=== PATIENT | female | born 1975 | race Caucasian/White ===

== ENCOUNTER 2018-03-29 11:20 | Observation (INO) | payer BC ==
[~2018-03-29] VITALS: Ht 170.2 cm; Wt 56.4 kg
[~2018-03-29 11:20] MED LIST: Z.0.NO CURRENT MEDS
[2018-03-29 11:23] VITALS: BP 118/67; PULSE 87; RESP 16; TEMP 97.5; O2SAT 100
[2018-03-29] MEDS ORDERED: SODIUM CHLOR 0.9% 1000 ML INJ 1,000 ML IV SCH (11:36)
[2018-03-29] MEDS ORDERED: ONDANSETRON ODT 4 MG TAB PO ONE (11:45)
[2018-03-29] MEDS ORDERED: MORPHINE SULFATE 4 MG/ML INJ IV PUSH ONE (11:45)
[2018-03-29] MEDS ORDERED: SODIUM CHLORIDE 0.9% FLUSH 10 ML FLUSH IV FLUSH PRN (11:45)
--- NOTE | 2018-03-29 11:46 | PD ---
HPI Chief Complaint: Abdominal Pain Time Seen by Provider: 11:29 Travel History International Travel<30 days: No Contact w/Intl Traveler<30days: No Traveled to known affect area: No History of Present Illness HPI The patient was seen and examined in the presence of the nurse. This patient complains of abdominal pain. Location is periumbilical. Duration is 4.5 hours. She has nausea and vomiting as well. No fever. No alleviating factors. No exacerbating factors. No history of abdominal surgeries. Patient has ADD on Adderall. She has had some light vaginal bleeding for 2-3 weeks which started after recently stopping her control pills. Pain is rated as severe. PFSH Past Medical History Hx Anticoagulant Therapy: No ADD: Yes Diminished Hearing: No Insomnia: Yes Tetanus Vaccination: > 5 Years Influenza Vaccination: No ?: Unknown LMP: Int. spotting X's 2 weeks Past Surgical History Surgical History: No Previous Surgery Social History Alcohol Use: No Tobacco Use: No Substance Use: No Allergies-Medications (Allergen,Severity, Reaction): Coded Allergies: No Known Allergies (Verified Allergy, Unknown, 03/29/18) Reported Meds & Prescriptions Reported Meds & Active Scripts Active Review of Systems General / Constitutional: No: Fever Eyes: No: Visual changes HENT: No: Headaches Cardiovascular: No: Chest Pain or Discomfort Respiratory: No: Shortness of Breath Gastrointestinal: Positive: Nausea, Vomiting, Abdominal Pain Genitourinary: Positive: Vaginal Bleeding, No: Dysuria Musculoskeletal: No: Pain Skin: No Rash Neurologic: No: Weakness Psychiatric: No: Depression Endocrine: No: Polydipsia Hematologic/Lymphatic: No: Easy Bruising Physical Exam Narrative GENERAL: Well-nourished, well-developed patient in abdominal pain . SKIN: Focused skin assessment reveals no rash and nodules. Skin is Warm and dry. HEAD: Atraumatic. Normocephalic. EYES: Pupils equal and round. No scleral icterus. No injection or drainage. ENT: No nasal bleeding or discharge. Mucous membranes pink and moist. NECK: Trachea midline. No JVD. CARDIOVASCULAR: Regular rate and rhythm. No murmur appreciated. RESPIRATORY: No accessory muscle use. Clear to auscultation. Breath sounds equal bilaterally. GASTROINTESTINAL: Abdomen soft, periumbilical tenderness is present without rebound or guarding , nondistended. Hepatic and splenic margins not palpable. MUSCULOSKELETAL: No obvious deformities. No clubbing. No cyanosis. No edema. NEUROLOGICAL: Awake and alert. No obvious cranial nerve deficits. Motor grossly within normal limits. Normal speech. PSYCHIATRIC: Appropriate mood and affect; insight and judgment normal. \Pelvic: Scant dried blood in the vault. No discharge. No cervical motion tenderness. No adnexal mass or tenderness. No uterine tenderness. Data Data Last Documented VS Vital Signs Date Time Temp Pulse Resp B/P (MAP) Pulse Ox O2 Delivery O2 Flow Rate FiO2 03/29/18 13:00 69 18 120/72 (88) 100 Room Air 03/29/18 11:23 97.5 Orders Orders Complete Blood Count With Diff (03/29/18 11:36) Comprehensive Metabolic Panel (03/29/18 11:36) Lipase (03/29/18 11:36) Prothrombin Time / Inr (Pt) (03/29/18 11:36) Act Partial Throm Time (Ptt) (03/29/18 11:36) Urinalysis - C+S If Indicated (03/29/18 11:36) Ct Abd/Pel W Iv Contrast(Rout) (03/29/18 11:36) Iv Access Insert/Monitor (03/29/18 11:36) NPO (03/29/18 11:36) Sodium Chlor 0.9% 1000 Ml Inj (Ns 1000 M (03/29/18 11:36) Sodium Chloride 0.9% Flush (Ns Flush) (03/29/18 11:45) Ondansetron Odt (Zofran Odt) (03/29/18 11:45) Morphine Inj (Morphine Inj) (03/29/18 11:45) Beta Hcg (Quant/Titer) (03/29/18 11:36) Prochlorperazine Inj (Compazine Inj) (03/29/18 13:15) Iohexol 350 Inj (Omnipaque 350 Inj) (03/29/18 13:35) Admit Order (Ed Use Only) (03/29/18 14:00) Labs Laboratory Tests Test 03/29/18 12:38 03/29/18 13:59 White Blood Count 20.5 TH/MM3 Red Blood Count 4.64 MIL/MM3 Hemoglobin 13.4 GM/DL Hematocrit 40.0 % Mean Corpuscular Volume 86.2 FL Mean Corpuscular Hemoglobin 28.8 PG Mean Corpuscular Hemoglobin Concent 33.5 % Red Cell Distribution Width 13.3 % Platelet Count 188 TH/MM3 Mean Platelet Volume 9.0 FL Neutrophils (%) (Auto) 92.7 % Lymphocytes (%) (Auto) 5.1 % Monocytes (%) (Auto) 1.5 % Eosinophils (%) (Auto) 0.1 % Basophils (%) (Auto) 0.6 % Neutrophils # (Auto) 19.1 TH/MM3 Lymphocytes # (Auto) 1.0 TH/MM3 Monocytes # (Auto) 0.3 TH/MM3 Eosinophils # (Auto) 0.0 TH/MM3 Basophils # (Auto) 0.1 TH/MM3 CBC Comment AUTO DIFF Differential Comment AUTO DIFF CONFIRMED Platelet Estimate NORMAL Platelet Morphology Comment NORMAL Red Cell Morphology Comment NORMAL Prothrombin Time 10.7 SEC Prothromb Time International Ratio 1.1 RATIO Activated Partial Thromboplast Time 28.6 SEC Blood Urea Nitrogen 10 MG/DL Creatinine 0.56 MG/DL Random Glucose 125 MG/DL Total Protein 6.7 GM/DL Albumin 3.6 GM/DL Calcium Level 8.4 MG/DL Alkaline Phosphatase 62 U/L Aspartate Amino Transf (AST/SGOT) 14 U/L Alanine Aminotransferase (ALT/SGPT) 20 U/L Total Bilirubin 0.4 MG/DL Sodium Level 137 MEQ/L Potassium Level 3.6 MEQ/L Chloride Level 104 MEQ/L Carbon Dioxide Level 24.7 MEQ/L Anion Gap 8 MEQ/L Estimat Glomerular Filtration Rate 120 ML/MIN Lipase 80 U/L Human Chorionic Gonadotropin, Quant LESS THAN 1 MIU/ML MDM Medical Decision Making Medical Screen Exam Complete: Yes Emergency Medical Condition: Yes Medical Record Reviewed: Yes Differential Diagnosis Appendicitis, ectopic, colitis Narrative Course I have reviewed the patient's electronic medical record. 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 This would go along with her periumbilical abdominal pain rather than right lower quadrant Case reviewed with Dr. Garcia who will admit for acute appendicitis. I gave a dose of Unasyn She is n.p.o. Diagnosis Primary Impression: Acute appendicitis Qualified Codes: K35.80 - Unspecified acute appendicitis Admitting Information Admitting Physician Requests: Admit Titi Colorado MD Mar 29, 2018 11:46
[2018-03-29 12:48] LABS: AUTOMATED NEUTROPHIL # 19.1 TH/MM3 (1.8-7.7); BASOPHIL # 0.1 TH/MM3 (0-0.2); BASOPHIL % 0.6 % (0.0-2.0); EOSINOPHIL % 0.1 % (0.0-4.0); HEMOGLOBIN 13.4 GM/DL (11.6-15.3); LYMPH % 5.1 % (9.0-44.0); MEAN CELL VOLUME 86.2 FL (80.0-100.0); MEAN CORPUSCULAR HEMOGLOBIN 28.8 PG (27.0-34.0); MEAN CORPUSCULAR HGB CONC 33.5 % (32.0-36.0); MONO % 1.5 % (0.0-8.0); MONOCYTE # 0.3 TH/MM3 (0-0.9); NEUT % 92.7 % (16.0-70.0); PLATELET COUNT 188 TH/MM3 (150-450); RED BLOOD COUNT 4.64 MIL/MM3 (4.00-5.30); RED CELL DISTRIBUTION WIDTH 13.3 % (11.6-17.2); WHITE BLOOD COUNT 20.5 TH/MM3 (4.0-11.0)
[2018-03-29 13:00] VITALS: BP 120/72; PULSE 69; RESP 18; O2SAT 100
[2018-03-29 13:01] LABS: CHLORIDE 104 MEQ/L (98-107); SODIUM (NA) 137 MEQ/L (136-145)
[2018-03-29 13:05] LABS: ALBUMIN 3.6 GM/DL (3.4-5.0); BICARBONATE 24.7 MEQ/L (21.0-32.0); CALCIUM 8.4 MG/DL (8.5-10.1); GLUCOSE,RANDOM 125 MG/DL (74-106)
[2018-03-29 13:06] LABS: BLOOD UREA NITROGEN 10 MG/DL (7-18); INTERNATIONAL NORMALIZED RATIO 1.1 RATIO; PROTHROMBIN TIME - PATIENT 10.7 SEC (9.8-11.6)
[2018-03-29 13:08] LABS: ALT (GPT) 20 U/L (10-53); AST (GOT) 14 U/L (15-37); CREATININE 0.56 MG/DL (0.50-1.00); GLOMERULAR FILTRATION RATE 120 ML/MIN (>89)
[2018-03-29 13:10] LABS: TOTAL BILIRUBIN ADULT 0.4 MG/DL (0.2-1.0); TOTAL PROTEIN 6.7 GM/DL (6.4-8.2)
[2018-03-29 13:11] LABS: ALKALINE PHOSPHATASE 62 U/L (45-117)
[2018-03-29] MEDS ORDERED: PROCHLORPERAZINE INJ 10 MG/2 ML VIAL IV PUSH ONE (13:15)
[2018-03-29] MEDS ORDERED: IOHEXOL 350 MG/ML 10 ML VIAL (for RAD DIAG) IVCONTRAST ONE (13:35)
--- NOTE | 2018-03-29 13:47 | RADRPT ---
EXAM DATE: 03/29/2018 1:34 PM EDT AGE/SEX: 42 years / Female INDICATIONS: Mid abdominal pain with nausea and vomiting. CLINICAL DATA: This is the patient's initial encounter. Patient reports that signs and symptoms have been present for 1 day and indicates a pain score of 4/10. MEDICAL/SURGICAL HISTORY: None. None. ORAL CONTRAST: No oral contrast ingested. RADIATION DOSE: 5.63 CTDI (mGy) COMPARISON: No prior [facility] exams available for comparison. TECHNIQUE: Multiple contiguous axial images were obtained through the abdomen and pelvis following b olus infusion of 90 ml Omnipaque 350 (iohexol) nonionic water-soluble contrast as a single exam dos e. No oral contrast ingested. Using automated exposure control and adjustment of the mA and/or kV ac cording to patient size, the radiation dose was kept as low as reasonably achievable to obtain optima l diagnostic quality images. FINDINGS: Lower Lungs: The visualized lower lungs are clear. Liver: Punctate, subcentimeter hypodensity the junction of the left and right hepatic lobe probably r epresenting a small cyst. There is no dilation of the biliary tree. Spleen: Homogeneous density without enlargement. Pancreas: Unremarkable without mass or calcification. Kidneys: Normal in size and shape. No evidence of mass or hydronephrosis. Adrenal Glands: Unremarkable. Aorta: The aorta and proximal iliac vessels are grossly unremarkable without aneurysmal dilation. Bowel/Mesentery: The bowel loops are grossly unremarkable. The cecum and sigmoid colon have a normal configuration. The appendix is rather long with an increased diameter measuring upwards of 9.5 mm. T here are also scattered areas of either inspissated stool, small appendicoliths or previous contrast in the appendiceal lumen Abdominal Wall: Intact. Retroperitoneum: No evidence of adenopathy in the retrocrural, para-aortic, or deep pelvic regions. Bladder: Contours are smooth. Reproductive Organs: Retroflexed uterus. 2.2 cm cyst in the right ovary. Inguinal: The inguinal region is unremarkable without evidence of adenopathy. Bony Structures: Unremarkable. CONCLUSION: 1. Appendix is abnormally thickened measuring 9.5 mm in diameter with scattered areas of increased d ensity possibly representing small appendicoliths or inspissated stool. Findings are characteristic o f a mild, early appendicitis. 2. 2.2 cm right ovarian cyst Electronically signed by: Herb Weinstein MD 03/29/2018 1:46 PM EDT
[2018-03-29 14:07] LABS: BILIRUBIN, URINE NEG (NEG); BLOOD, URINE TRACE (NEG); GLUCOSE,URINE NEG (NEG); KETONE, URINE 40 mg/dL (NEG); NITRITE,URINE NEG (NEG); PH, URINE 6.5 (5.0-8.5); URINE COLOR YELLOW (YELLW/STRAW); URINE LEUKOCYTE ESTERASE NEG (NEG)
[2018-03-29 14:15] LABS: RBC, URINE 0-3 /hpf (0-3); SQUAMOUS EPITHELIAL CELL URINE 0-5 /hpf (0-5); WBC, URINE 0-2 /hpf (0-5)
[2018-03-29] MEDS ORDERED: PROCHLORPERAZINE INJ 10 MG/2 ML VIAL IV PUSH PRN (14:15)
[2018-03-29] MEDS ORDERED: MORPHINE SULFATE 4 MG/ML INJ IV PUSH PRN ×2 (14:15→18:30)
[2018-03-29] MEDS ORDERED: AMPICILLIN-SULBACTAM INJ 1,500 MG in SODIUM CHLORIDE 0.9% INJ 100 ML IV ONE (14:15)
[2018-03-29] MEDS: SODIUM CHLOR 0.9% 1000 ML INJ 1,000 ML IV SCH ×3 (14:20→20:12)
[2018-03-29 14:25] VITALS: BP 122/76; PULSE 92; RESP 16; O2SAT 97
[2018-03-29] MEDS ORDERED: BUPIVACAINE/EPINEPHRINE 0.75% PF 30 ML VIAL ONE (14:29)
[2018-03-29] MEDS ORDERED: APREPITANT 40 MG CAP ONE (16:35)
[2018-03-29] MEDS ORDERED: LACTATED RINGER'S 1000 ML IV PRN (17:00)
[2018-03-29] MEDS ORDERED: METOPROLOL TARTRATE 25 MG TAB PO PRN (17:00)
[2018-03-29] MEDS ORDERED: POVIDONE IODINE 5% (ANTISEPSIS KIT) 4 APPLICATIONS EACH NARE PRN (17:00)
[2018-03-29] MEDS ORDERED: SODIUM CHLORID 0.9% 500 ML IV PRN (17:00)
[2018-03-29] MEDS ORDERED: CHLORHEXIDINE GLUCONATE 2 % 1 PACK (2 CLOTHS) TOPICAL PRN (17:00)
--- NOTE | 2018-03-29 18:25 | HHI.PR ---
cc: El Garcia MD Immediate Post Op Note Procedure Date: Mar 29, 2018 Pre Op Diagnosis: Acute appendicitis Post Op Diagnosis: Same, without perforation Surgeon: El Garcia Loft Patternmaker(s): Levi Savage CFA Procedure: Laparoscopic appendectomy Complications: None Specimen(s) removed: Appendix to pathology Estimated blood loss: <10 ml Anesthesia: General Drains: None IVF (900 ml) Patient to: PACU Patient Condition: Good Date/Time of Procedure: SEE SURGICAL CARE RECORD El Garcia MD Mar 29, 2018 18:25
[2018-03-29] MEDS ORDERED: HYDR-3288 PO (18:29)
[2018-03-29] MEDS ORDERED: MORPHINE SULFATE 8 MG/ML INJ IV PUSH PRN (18:30)
[2018-03-29] MEDS ORDERED: NALOXONE HCL 0.4 MG/ML AMP IV PUSH PRN (18:30)
[2018-03-29] MEDS ORDERED: ACETAMINOPHEN/HYDROcodone 325 MG/5 MG TAB PO PRN (18:30)
[2018-03-29] MEDS ORDERED: diphenhydrAMINE HCL 50 MG/ML VIAL IVP PRN (18:30)
[2018-03-29] MEDS ORDERED: Post-op Orders (for Pharmacy) XX ONE (18:30)
[2018-03-29 18:33] VITALS: PULSE 115
--- NOTE | 2018-03-29 19:30 | MH ---
cc: El Garcia MD DATE OF ADMISSION: 03/29/2018 REASON FOR ADMISSION: Acute appendicitis. HISTORY OF PRESENT ILLNESS: The patient is a 42-year-old female who began to develop abdominal pain across the lower abdomen this morning. It began in the periumbilical region and has now migrated to both lower abdomen. The patient had nausea and emesis as well. No change in bowel habits. She has no history of abdominal surgeries. She takes Adderall for attention deficit disorder. Last menstrual period, she has had intermittent spotting for the last 2 weeks. She has had no previous surgeries. She does not drink. She does not smoke. She does not use other medications or substances. ALLERGIES: SHE HAS NO KNOWN ALLERGIES. REVIEW OF SYSTEMS: Negative except for GI, which is positive as indicated above. PHYSICAL EXAMINATION: GENERAL: Exam reveals a female, in no acute distress. VITAL SIGNS: BP 139/90, pulse 115, respirations 16, temperature 97.6, 100% saturation on room air. HEENT: Sclerae anicteric. CHEST: Clear to auscultation. CARDIOVASCULAR: Reveals tachycardia, without murmurs. ABDOMEN: Soft, with tenderness in both lower quadrants, with some guarding in the right lower quadrant. There are no hernias noted. Pulses are intact. NEUROLOGIC: Nonfocal. LABORATORY DATA: Demonstrate WBCs of 20.5, hemoglobin is 13.4, platelets 188,000. Chemistries demonstrate BUN and creatinine of 10 and 0.56. Potassium is 3.6. IMAGING: Demonstrates dilated appendix to 1 cm, with areas of increased density representing appendicolith or inspissated stool. This is consistent with a mild early appendicitis and a 2.2 cm right ovarian cyst is noted as well. ASSESSMENT: Early acute appendicitis, with right lower quadrant pain and guarding. PLAN: I have discussed with the patient and her significant other laparoscopic appendectomy versus antibiotic treatment. Given her significant pain with an 8/10, I have recommended that she consider appendectomy and she is agreeable. I have discussed risks of surgery including, but not limited to, bleeding, infection, leakage and adhesion formation, need for possible open procedure and drainage. I have discussed remedies, consequences, alternatives and convalescence; she vocalizes understanding and agrees to proceed. MD JOY Nelson/LACI , 06:37 PM , 07:29 PM
--- NOTE | 2018-03-29 20:00 | MP ---
cc: El Garcia MD DATE OF OPERATION: 03/29/2018 PROCEDURE PERFORMED: Laparoscopic appendectomy. PREOPERATIVE DIAGNOSIS: Acute appendicitis. POSTOPERATIVE DIAGNOSIS: Acute appendicitis without perforation. ANESTHESIA: General endotracheal. SURGEON: El Garcia MD ESTIMATED BLOOD LOSS: Less than 10 mL FLUIDS: 900 mL crystalloid. COMPLICATIONS: None. DRAINS: None. SPECIMENS: Appendix to pathology. PROCEDURE IN DETAIL: The patient was taken to the operating room and placed on the operating table in the supine position. After an adequate level of general endotracheal anesthesia was achieved, the abdomen was prepped and draped in the usual fashion. Timeout was taken confirming the correct patient, site and procedure to be performed. Skin and subcutaneous tissue was infiltrated with local anesthetic, an incision made in the umbilicus and carried through the fascia sharply. The peritoneal cavity was directly visualized. A 12 mm balloon trocar was inserted and the balloon inflated. The abdomen was insufflated. The patient was placed in Trendelenburg position. A 5 mm 30 degree laparoscope was inserted. Two 5 mm trocars were then placed with the first in the right lower quadrant and the second in the suprapubic region, midway between the pubis and the umbilical port. Both entered the abdominal cavity under direct vision uneventfully. The appendix was then rotated up and was seen to be dilated and slightly inflamed. The mesoappendix was divided with the Harmonic scalpel. Dissection was carried back to the base of the appendix. A 0 PDS Endoloop was slipped over the appendix and cinched down at the base. While dividing the appendix 1 cm distal to this, a small piece of stool extruded. This was taken with the appendix and placed into an EndoCatch device, while observing via the right lower quadrant trocar site with the camera. This was taken out via the umbilical port site and passed off the table. The abdomen was then irrigated and all irrigation aspirated from the abdominal cavity. The appendectomy stump was seen to be clean and dry. There was no bleeding noted from the mesoappendix. The cul-de-sac was examined and seen to be clean and dry as well. There were no suspicious lesions or other findings of significance. Insufflation was then discontinued and the 5 mm trocars were removed under direct vision. No bleeding was noted from the trocar sites. The laparoscope and umbilical port were then removed. The fascia was closed in the umbilicus with 0 Vicryl suture in both a simple interrupted and [id number] fashion. The remaining local anesthetic was injected into each of the trocar sites. The skin was closed at each of the trocar sites with 4-0 Vicryl in an interrupted buried fashion. All trocar sites were dressed with Steri-Strips. The patient was extubated and taken back to the recovery room in stable condition. She tolerated the procedure well. MD JOY Nelson/LACI , 06:40 PM , 08:00 PM
[2018-03-29] MEDS: KETOROLAC TROMETHAMINE 30 MG/ML (IVP) VIAL IVP PRN (20:13)
[2018-03-30] VITALS: BP 135/91; PULSE 104; RESP 20; TEMP 98.4; O2SAT 98
[2018-03-30] MEDS: ONDANSETRON HCL 4 MG/2 ML VIAL IV PUSH PRN ×2 (00:50→08:56)
[2018-03-30] MEDS: ACETAMINOPHEN/HYDROcodone 325 MG/5 MG TAB PO PRN ×4 (00:50→15:34)
[2018-03-30] MEDS: SODIUM CHLOR 0.9% 1000 ML INJ 1,000 ML IV SCH ×2 (02:42→03:24)
[2018-03-30] MEDS: KETOROLAC TROMETHAMINE 30 MG/ML (IVP) VIAL IVP PRN ×3 (03:33→13:26)
[2018-03-30 08:00] VITALS: BP 135/82; PULSE 94; RESP 19; TEMP 97.1; O2SAT 99
[2018-03-30 08:15] LABS: AUTOMATED NEUTROPHIL # 16.5 TH/MM3 (1.8-7.7); BASOPHIL # 0.3 TH/MM3 (0-0.2); BASOPHIL % 1.5 % (0.0-2.0); EOSINOPHIL # 0.2 TH/MM3 (0-0.4); EOSINOPHIL % 0.9 % (0.0-4.0); HEMATOCRIT 37.9 % (35.0-46.0); HEMOGLOBIN 12.6 GM/DL (11.6-15.3); LYMPH % 7.3 % (9.0-44.0); LYMPHOCYTE # 1.4 TH/MM3 (1.0-4.8); MEAN CELL VOLUME 85.5 FL (80.0-100.0); MEAN CORPUSCULAR HEMOGLOBIN 28.5 PG (27.0-34.0); MEAN CORPUSCULAR HGB CONC 33.3 % (32.0-36.0); MEAN PLATELET VOLUME 8.9 FL (7.0-11.0); MONOCYTE # 0.6 TH/MM3 (0-0.9); NEUT % 87.3 % (16.0-70.0); PLATELET COUNT 190 TH/MM3 (150-450); RED BLOOD COUNT 4.43 MIL/MM3 (4.00-5.30)
[2018-03-30] MEDS ORDERED: ZOFR4TAB PO (08:31)
[2018-03-30] MEDS ORDERED: POTASSIUM CHLOR 20 MEQ PREMIX 100 ML IV ONE (10:45)
--- NOTE | 2018-03-30 11:48 | HHI.PR ---
Subjective Subjective Notes Resting in bed Painful but "different type pain today" Objective Vitals/I&O Vital Signs Date Time Temp Pulse Resp B/P (MAP) Pulse Ox O2 Delivery O2 Flow Rate FiO2 03/30/18 09:58 18 03/30/18 08:00 97.1 94 135/82 (99) 99 03/29/18 19:00 Room Air Labs Laboratory Tests Test 03/29/18 12:38 03/29/18 13:59 03/30/18 08:05 White Blood Count 20.5 19.0 Red Blood Count 4.64 4.43 Hemoglobin 13.4 12.6 Hematocrit 40.0 37.9 Mean Corpuscular Volume 86.2 85.5 Mean Corpuscular Hemoglobin 28.8 28.5 Mean Corpuscular Hemoglobin Concent 33.5 33.3 Red Cell Distribution Width 13.3 13.0 Platelet Count 188 190 Mean Platelet Volume 9.0 8.9 Neutrophils (%) (Auto) 92.7 87.3 Lymphocytes (%) (Auto) 5.1 7.3 Monocytes (%) (Auto) 1.5 3.0 Eosinophils (%) (Auto) 0.1 0.9 Basophils (%) (Auto) 0.6 1.5 Neutrophils # (Auto) 19.1 16.5 Lymphocytes # (Auto) 1.0 1.4 Monocytes # (Auto) 0.3 0.6 Eosinophils # (Auto) 0.0 0.2 Basophils # (Auto) 0.1 0.3 CBC Comment AUTO DIFF DIFF FINAL Differential Comment AUTO DIFF CONFIRMED Platelet Estimate NORMAL Platelet Morphology Comment NORMAL Red Cell Morphology Comment NORMAL Prothrombin Time 10.7 Prothromb Time International Ratio 1.1 Activated Partial Thromboplast Time 28.6 Blood Urea Nitrogen 10 Creatinine 0.56 Random Glucose 125 Total Protein 6.7 Albumin 3.6 Calcium Level 8.4 Alkaline Phosphatase 62 Aspartate Amino Transf (AST/SGOT) 14 Alanine Aminotransferase (ALT/SGPT) 20 Total Bilirubin 0.4 Sodium Level 137 Potassium Level 3.6 Chloride Level 104 Carbon Dioxide Level 24.7 Anion Gap 8 Estimat Glomerular Filtration Rate 120 Lipase 80 Human Chorionic Gonadotropin, Quant LESS THAN 1 Urine Collection Type Urine Color YELLOW Urine Turbidity CLEAR Urine pH 6.5 Urine Specific [place] LESS/EQUAL 1.005 Urine Protein NEG Urine Glucose (UA) NEG Urine Ketones 40 Urine Occult Blood TRACE Urine Nitrite NEG Urine Bilirubin NEG Urine Urobilinogen 0.2 Urine Leukocyte Esterase NEG Urine RBC 0-3 Urine WBC 0-2 Urine Squamous Epithelial Cells 0-5 Urine Bacteria NONE Microscopic Urinalysis Comment CULT NOT INDICATED Cardiovascular: Regular Lungs: Clear Abdomen: Other (lap sites without any redness; umbilical site with mildly blood drainage; RLQ tenderness ), Post-op tenderness Extremities: No edema A/P Assessment and Plan 42 year old female POD1 non perforated appendicitis -Regular diet -WBC remain elevated; continue Unasyn and recheck CBC at 1400 -Pain control -Depending on WBC ---DC today vs tomorrow -Dr. Garcia to see this evening -Discussed with RN Pool and at bedside Attending Note - Dr. Garcia Abdominal pain improved WBC's repeated, down to 15.9k Ok for cischarge F/U my office one week The exam, history, and the medical decision-making described in the above note were completed with the assistance of the mid-level provider. I reviewed and agree with the findings presented. I attest that I had a [id number] encounter with the patient on the same day, and personally performed and documented my assessment and findings in the medical record. Michelle GomesP/Librarian Assistant SMALLTALK DEVELOPER Mar 30, 2018 11:48 El Garcia MD Mar 30, 2018 19:33
[2018-03-30 12:00] VITALS: BP 140/74; PULSE 87; RESP 20; TEMP 97.1; O2SAT 100
[2018-03-30] MEDS ORDERED: AMPICILLIN-SULBACTAM INJ 1,500 MG in SODIUM CHLORIDE 0.9% INJ 100 ML IV SCH ×2 (12:00→18:00)
[2018-03-30 13:32] LABS: AUTOMATED NEUTROPHIL # 13.8 TH/MM3 (1.8-7.7); BASOPHIL # 0.1 TH/MM3 (0-0.2); BASOPHIL % 0.5 % (0.0-2.0); EOSINOPHIL % 0.2 % (0.0-4.0); HEMATOCRIT 35.9 % (35.0-46.0); HEMOGLOBIN 12.4 GM/DL (11.6-15.3); LYMPH % 6.1 % (9.0-44.0); LYMPHOCYTE # 0.9 TH/MM3 (1.0-4.8); MEAN CELL VOLUME 85.3 FL (80.0-100.0); MEAN CORPUSCULAR HEMOGLOBIN 29.4 PG (27.0-34.0); MEAN CORPUSCULAR HGB CONC 34.4 % (32.0-36.0); MEAN PLATELET VOLUME 9.5 FL (7.0-11.0); MONOCYTE # 0.1 TH/MM3 (0-0.9); NEUT % 92.2 % (16.0-70.0); PLATELET COUNT 219 TH/MM3 (150-450); RED BLOOD COUNT 4.21 MIL/MM3 (4.00-5.30); RED CELL DISTRIBUTION WIDTH 13.5 % (11.6-17.2); WHITE BLOOD COUNT 14.9 TH/MM3 (4.0-11.0)
[2018-03-30 16:34] VITALS: RESP 18
== END 2018-03-30 16:56 | disposition home or self-care (01) ==
LOC: PHED 11:20 → INTOOBSV 14:01 → PHEDA 14:01 → PH3A 14:40
PROVIDERS: ADMIT Surgery Trauma Surgery; ATTEND Surgery Trauma Surgery
DX: K35.80 Unspecified acute appendicitis (principal); G47.00 Insomnia, unspecified; F98.8 Other specified behavioral and emotional disorders with onset usually occurring in childhood and adolescence; N83.201 Unspecified ovarian cyst, right side
CPT/HCPCS: 00840; 44970; 74177; 80053; 81001; 83690; 84702; 85025; 85610; 85730; 88304; 94150; 96361; 96365; 96375; 96376; 99285; G0378; J0295; J0780; J1885; J2270; J2405; J3010; J7030; J7120; Q9967; J8501

== ENCOUNTER 2018-04-08 08:07 | Emergency (ER) | payer BC ==
[~2018-04-08] VITALS: Ht 152.4 cm; Wt 56.0 kg
[~2018-04-08 08:07] MED LIST changes: +HYDR-3288 PO; -Z.0.NO CURRENT MEDS; +ZOFR4TAB PO
[2018-04-08 08:09] VITALS: BP 120/81; PULSE 102; RESP 16; TEMP 97.6; O2SAT 99
--- NOTE | 2018-04-08 08:40 | PD ---
HPI Chief Complaint: Skin Problem Time Seen by Provider: 08:37 Travel History International Travel<30 days: No Contact w/Intl Traveler<30days: No Traveled to known affect area: No History of Present Illness HPI This 42-year-old female is complaining of drainage from an umbilical wound. She was admitted to the hospital on March 29 with acute appendicitis. He had an appendectomy done with Dr. Garcia. She has done well since the surgery. She did have some irritation at the umbilical port since his surgery. She saw Dr. Garcia in follow-up on Thursday and was well. This morning when she got up she noted there was purulent drainage from the umbilical site. She has been eating. She has not had a fever. PFSH Past Medical History Hx Anticoagulant Therapy: No ADD: Yes Diabetes: No Diminished Hearing: No Insomnia: Yes Tetanus Vaccination: Unknown Influenza Vaccination: No ?: Not LMP: 3 WEEKS Past Surgical History Appendectomy: Yes (03/29/18) Social History Alcohol Use: No Tobacco Use: No Substance Use: No Allergies-Medications (Allergen,Severity, Reaction): Coded Allergies: No Known Allergies (Verified Allergy, Unknown, 04/08/18) Reported Meds & Prescriptions Reported Meds & Active Scripts Active Zofran (Ondansetron HCl) 4 Mg Tab 4 Mg PO Q6HR PRN [place] (Hydrocodone-Acetaminophen) 7.5-325 mg Tab 1-2 Tab PO Q4H PRN Review of Systems Except as stated in HPI: all other systems reviewed are Neg General / Constitutional: No: Fever, Chills Eyes: No: Diploplia HENT: No: Headaches Cardiovascular: No: Chest Pain or Discomfort Respiratory: No: Cough, Shortness of Breath Gastrointestinal: No: Nausea, Vomiting Genitourinary: No: Urgency Skin: No Rash Endocrine: No: Heat Intolerance, Cold Intolerance Hematologic/Lymphatic: No: Easy Bruising Physical Exam Narrative GENERAL: Well-developed female SKIN: Focused skin assessment warm/dry. HEAD: Atraumatic. Normocephalic. EYES: Pupils equal and round. No scleral icterus. No injection or drainage. ENT: No nasal bleeding or discharge. Mucous membranes pink and moist. NECK: Trachea midline. No JVD. CARDIOVASCULAR: Regular rate and rhythm. No murmur appreciated. RESPIRATORY: No accessory muscle use. Clear to auscultation. Breath sounds equal bilaterally. GASTROINTESTINAL: Abdomen soft, non-tender, nondistended. Hepatic and splenic margins not palpable. There are Steri-Strips over the incision from the appendectomy. There is purulent drainage coming from under the Steri-Strip overlying the umbilicus. I have removed that Steri-Stripped to promote drainage. A culture has been obtained. No masses palpable MUSCULOSKELETAL: No obvious deformities. No clubbing. No cyanosis. No edema. NEUROLOGICAL: Awake and alert. No obvious cranial nerve deficits. Motor grossly within normal limits. Normal speech. PSYCHIATRIC: Appropriate mood and affect; insight and judgment normal. Data Data Last Documented VS Vital Signs Date Time Temp Pulse Resp B/P (MAP) Pulse Ox O2 Delivery O2 Flow Rate FiO2 04/08/18 10:48 105 16 127/85 (99) 100 Room Air 04/08/18 08:09 97.6 Orders Orders Wound Culture And Gram Stain (04/08/18 08:37) Complete Blood Count With Diff (04/08/18 08:47) Basic Metabolic Panel (Bmp) (04/08/18 08:47) Ct Abd/Pel W Iv Contrast(Rout) (04/08/18 08:47) Iohexol 350 Inj (Omnipaque 350 Inj) (04/08/18 09:57) Labs Laboratory Tests Test 04/08/18 09:00 White Blood Count 13.0 TH/MM3 Red Blood Count 4.62 MIL/MM3 Hemoglobin 13.4 GM/DL Hematocrit 40.1 % Mean Corpuscular Volume 86.9 FL Mean Corpuscular Hemoglobin 28.9 PG Mean Corpuscular Hemoglobin Concent 33.3 % Red Cell Distribution Width 13.3 % Platelet Count 440 TH/MM3 Mean Platelet Volume 7.6 FL Neutrophils (%) (Auto) 77.2 % Lymphocytes (%) (Auto) 14.8 % Monocytes (%) (Auto) 5.0 % Eosinophils (%) (Auto) 0.8 % Basophils (%) (Auto) 2.2 % Neutrophils # (Auto) 10.1 TH/MM3 Lymphocytes # (Auto) 1.9 TH/MM3 Monocytes # (Auto) 0.6 TH/MM3 Eosinophils # (Auto) 0.1 TH/MM3 Basophils # (Auto) 0.3 TH/MM3 CBC Comment DIFF FINAL Differential Comment Blood Urea Nitrogen 6 MG/DL Creatinine 0.58 MG/DL Random Glucose 88 MG/DL Calcium Level 9.3 MG/DL Sodium Level 136 MEQ/L Potassium Level 4.1 MEQ/L Chloride Level 101 MEQ/L Carbon Dioxide Level 28.3 MEQ/L Anion Gap 7 MEQ/L Estimat Glomerular Filtration Rate 115 ML/MIN MDM Medical Decision Making Medical Screen Exam Complete: Yes Emergency Medical Condition: Yes Medical Record Reviewed: Yes Differential Diagnosis Differential includes superficial skin infection versus deeper abscess. Narrative Course CT scan has been ordered to assess for possible deep abscess. CT scan shows a 3.5 cm fluid collection immediately below the umbilicus external to the peritoneal cavity. Case discussed with Dr. Garcia. The patient will be placed on antibiotics and she is to follow-up with him in the office. There is been spontaneous drainage of pus from the wound. We did try to open the area more to promote drainage but the patient did not tolerate the procedure well and she is draining well. She will be released with prescription for Keflex Diagnosis Primary Impression: S/P laparoscopic appendectomy Additional Impression: Skin abscess Scripts Cephalexin (Keflex) 500 Mg Capsule 500 MG PO Q6H for Infection for 10 Days, #40 CAP 0 Refills Prov: Efren Britt MD 04/08/18 Disposition: DISCHARGE HOME Condition: Stable Efren Britt MD Apr 08, 2018 08:40
[2018-04-08 09:11] LABS: AUTOMATED NEUTROPHIL # 10.1 TH/MM3 (1.8-7.7); BASOPHIL # 0.3 TH/MM3 (0-0.2); BASOPHIL % 2.2 % (0.0-2.0); EOSINOPHIL # 0.1 TH/MM3 (0-0.4); EOSINOPHIL % 0.8 % (0.0-4.0); HEMATOCRIT 40.1 % (35.0-46.0); HEMOGLOBIN 13.4 GM/DL (11.6-15.3); LYMPH % 14.8 % (9.0-44.0); LYMPHOCYTE # 1.9 TH/MM3 (1.0-4.8); MEAN CELL VOLUME 86.9 FL (80.0-100.0); MEAN CORPUSCULAR HEMOGLOBIN 28.9 PG (27.0-34.0); MEAN CORPUSCULAR HGB CONC 33.3 % (32.0-36.0); MEAN PLATELET VOLUME 7.6 FL (7.0-11.0); MONOCYTE # 0.6 TH/MM3 (0-0.9); NEUT % 77.2 % (16.0-70.0); PLATELET COUNT 440 TH/MM3 (150-450); RED BLOOD COUNT 4.62 MIL/MM3 (4.00-5.30); RED CELL DISTRIBUTION WIDTH 13.3 % (11.6-17.2)
[2018-04-08] MEDS ORDERED: IOHEXOL 350 MG/ML 10 ML VIAL (for RAD DIAG) IVCONTRAST ONE (09:57)
[2018-04-08 10:17] LABS: CALCIUM 9.3 MG/DL (8.5-10.1)
[2018-04-08 10:18] LABS: BICARBONATE 28.3 MEQ/L (21.0-32.0)
[2018-04-08 10:22] LABS: CREATININE 0.58 MG/DL (0.50-1.00)
--- NOTE | 2018-04-08 10:26 | RADRPT ---
EXAM DATE: 04/08/2018 9:58 AM EDT AGE/SEX: 42 years / Female INDICATIONS: Drainage from umbilicus wound today. Post appendectomy x 10 days. Evaluate for abscess . CLINICAL DATA: This is the patient's initial encounter. Patient reports that signs and symptoms have been present for 1 day and indicates a pain score of 6/10. MEDICAL/SURGICAL HISTORY: None. Appendectomy. ORAL CONTRAST: No oral contrast ingested. RADIATION DOSE: 6.31 CTDI (mGy) COMPARISON: [facility], CT ABDOMEN & PELVIS W CONTRAST, 03/29/2018. . TECHNIQUE: Multiple contiguous axial images were obtained through the abdomen and pelvis following b olus infusion of 90 ml Omnipaque 350 (iohexol) nonionic water-soluble contrast as a single exam dos e. No oral contrast ingested. Using automated exposure control and adjustment of the mA and/or kV ac cording to patient size, the radiation dose was kept as low as reasonably achievable to obtain optima l diagnostic quality images. FINDINGS: Lower Lungs: The visualized lower lungs are clear. Liver: The liver has a homogeneous density without space-occupying lesion. There is no dilation of th e biliary tree. Spleen: Homogeneous density without enlargement. Pancreas: Unremarkable without mass or calcification. Kidneys: The renal collecting systems are mildly distended. Kidneys are otherwise stable. Adrenal Glands: Unremarkable. Aorta: The aorta and proximal iliac vessels are grossly unremarkable without aneurysmal dilation. Bowel/Mesentery: The bowel loops are grossly unremarkable. The cecum and sigmoid colon have a normal configuration. Abdominal Wall: A subcutaneous fluid collection is identified inferiorly adjacent to the umbilicus. It measures 2.1 x 3.4 x 2.5 cm in size. Reactive inflammatory changes are identified in the anterior abdominal wall surrounding the umbilicus. Retroperitoneum: No evidence of adenopathy in the retrocrural, para-aortic, or deep pelvic regions. Bladder: Markedly distended Reproductive Organs: No abnormal masses or calcifications seen. Inguinal: The inguinal region is unremarkable without evidence of adenopathy. Bony Structures: Unremarkable. CONCLUSION: 1. 3.5 cm fluid collection adjacent to the umbilicus characteristic of a small abscess as clinically suspected. 2. Markedly distended urinary bladder with mild bilateral hydronephrosis. 3. Otherwise stable exam. Electronically signed by: Alen Rivers MD 04/08/2018 10:25 AM EDT
[2018-04-08 10:48] VITALS: BP 127/85; PULSE 105; RESP 16; O2SAT 100
[2018-04-08] MEDS ORDERED: CEPH-460 PO (11:23)
[2018-04-08 11:41] VITALS: BP 124/85
== END 2018-04-08 11:43 | disposition home or self-care (01) ==
LOC: PHED 08:07
DX: T81.4XXA Infection following a procedure, initial encounter (principal); L02.216 Cutaneous abscess of umbilicus; B96.20 Unspecified Escherichia coli [E. coli] as the cause of diseases classified elsewhere; B96.89 Other specified bacterial agents as the cause of diseases classified elsewhere; G47.00 Insomnia, unspecified; Z90.49 Acquired absence of other specified parts of digestive tract
CPT/HCPCS: 74177; 80048; 85025; 87070; 87077; 87186; 99284; Q9967